=== PATIENT | male | born 1955 | race Two or more races ===

== ENCOUNTER 2021-12-08 | Emergency (ER) | payer MEDICAID, OTHER ==
[~2021-12-08] VITALS: Ht 170.2 cm; Wt 100.7 kg
[2021-12-08 03:15] VITALS: BP 163/82
== END 2021-12-08 03:17 | disposition home or self-care (01) ==
LOC: EDBD → ER
DX: S01.01XA Laceration without foreign body of scalp, initial encounter (principal); Z88.8 Allergy status to other drugs, medicaments and biological substances; Y04.2XXA Assault by strike against or bumped into by another person, initial encounter; Y93.89 Activity, other specified; Y92.89 Other specified places as the place of occurrence of the external cause; Y99.8 Other external cause status
CPT/HCPCS: 12001; 70450